=== PATIENT | female | born 1980 | race Caucasian/White ===

== ENCOUNTER → 2020-12-08 | Outpatient (CLI) | payer BC ==
--- NOTE | 2020-12-08 07:54 | RAD ---
Study: XR FOOT_RIGHT 3 VIEWS Indication: Right foot pain. Injury. Comparison: None. Findings: No displaced fracture. Alignment is within normal limits noting the absence of weightbearing. Maintai dorita joint spaces. Radiographically unremarkable soft tissues. Impression: No displaced fracture or traumatic malalignment. Electronically signed by: TOBY PAL MD (12/08/2020 7:52 AM) [facility]
== END ==
LOC: PMG 07:28
PROVIDERS: ATTEND Nurse Practitioner Family
DX: S99.921A Unspecified injury of right foot, initial encounter (principal); X58.XXXA Exposure to other specified factors, initial encounter; Y93.89 Activity, other specified; Y92.89 Other specified places as the place of occurrence of the external cause; Y99.8 Other external cause status
CPT/HCPCS: 73630

== ENCOUNTER → 2021-01-09 | Outpatient (CLI) | payer BC ==
[2021-01-09 14:56] LABS: FREE T4 1.01 ng/dL (0.76-1.46); THYROID STIM HORMONE (TSH) 2.933 uIU/mL (0.358-3.740)
== END ==
LOC: LAB 09:30
PROVIDERS: ATTEND Obstetrics & Gynecology
DX: E03.9 Hypothyroidism, unspecified (principal); R63.5 Abnormal weight gain
CPT/HCPCS: 84439; 84443; 84481